=== PATIENT | female | born 1955 | race Caucasian/White ===

== ENCOUNTER → 2023-08-08 | Outpatient (CLI) | payer MEDICARE, MEDICAID ==
[~2023-08-08] MED LIST: ACET-683 PO; ATEN50TA2; CALC600C3 PO; CIDA500T2 PO; CRAN500C11 PO; FAMO20TA5; FLUTISP; IBUP200T46 PO; LEVO112T2; MELACAP PO; MULT-90 PO; PROBCAP14 PO
== END ==
LOC: M ONCR 10:17
PROVIDERS: ATTEND General Practice
DX: C50.411 Malignant neoplasm of upper-outer quadrant of right female breast (principal); Z71.2 Person consulting for explanation of examination or test findings; Z79.51 Long term (current) use of inhaled steroids; Z79.890 Hormone replacement therapy; Z79.899 Other long term (current) drug therapy; Z80.1 Family history of malignant neoplasm of trachea, bronchus and lung; Z80.3 Family history of malignant neoplasm of breast; Z87.891 Personal history of nicotine dependence; Z98.890 Other specified postprocedural states

== ENCOUNTER 2023-09-09 10:48 | Outpatient (RCR) | payer MEDICARE, MEDICAID ==
[~2023-09-09 10:48] MED LIST changes: +ANAS1TAB2 PO; +BEAN300T PO
== END 2023-09-21 ==
LOC: M ONCR 10:48
PROVIDERS: ATTEND General Practice
DX: Z51.0 Encounter for antineoplastic radiation therapy (principal); C50.411 Malignant neoplasm of upper-outer quadrant of right female breast

== ENCOUNTER → 2024-03-10 | Outpatient (CLI) | payer MEDICARE, MEDICAID ==
[~2024-03-10] MED LIST changes: -CRAN500C11 PO; +CVS500CA5 PO
== END ==
LOC: M ONCR 10:40
PROVIDERS: ATTEND General Practice
DX: C50.411 Malignant neoplasm of upper-outer quadrant of right female breast (principal); Z98.890 Other specified postprocedural states; Z92.3 Personal history of irradiation; Z79.811 Long term (current) use of aromatase inhibitors; Z79.51 Long term (current) use of inhaled steroids; Z79.899 Other long term (current) drug therapy; F17.200 Nicotine dependence, unspecified, uncomplicated

== ENCOUNTER 2025-01-03 10:56 | Day surgery (SDC) | payer MEDICARE, MEDICAID ==
[~2025-01-03] VITALS: Ht 177.8 cm; Wt 91.2 kg
[~2025-01-03 10:56] MED LIST changes: +EZET10TA57; +IBUP80TA PO; +LEVO125T4 PO; +LEVO137T2; +MAGN400C PO; +OMEP40CA5
[2025-01-03] MEDS: LIDOCAINE W/EPINEPHrine 1% 20 ML VIAL XX ONE (11:30)
[2025-01-03] MEDS: SODIUM BICARBONATE 8.4% INJ 50MEQ/50ML VIAL XX ONE (11:30)
[2025-01-03 13:31] VITALS: BP 160/72; TEMP 98.3; O2SAT 98
== END 2025-01-03 13:55 | disposition home or self-care (01) ==
LOC: M SDC 10:56
PROVIDERS: ATTEND Orthopaedic Surgery Hand Surgery
DX: M65.4 Radial styloid tenosynovitis [de Quervain] (principal); I10 Essential (primary) hypertension; E78.5 Hyperlipidemia, unspecified; K21.9 Gastro-esophageal reflux disease without esophagitis; Z79.899 Other long term (current) drug therapy; Z79.890 Hormone replacement therapy; Z85.3 Personal history of malignant neoplasm of breast; Z92.3 Personal history of irradiation; Z87.891 Personal history of nicotine dependence